=== PATIENT | male | born 1980 | race Caucasian/White ===

== ENCOUNTER → 2017-07-04 | Outpatient (CLI) | payer OTHER ==
[~2017-07-04] MED LIST: OXYC7.5T78 PO; TAMS0.4C38 PO
--- NOTE | 2017-07-04 10:46 | DIAGNOSTIC IMAGING REPORT ---
RENAL ULTRASOUND HISTORY: R31.29 Hematuria, [id number] COMPARISON: [facility] 02/09/2015. Abdomen and pelvis CT 07/30/2014. FINDINGS: Right kidney: 13.0 cm. No hydronephrosis. Normal corticomedullary differentiation and cortical thickness. Left kidney: 13.0 cm. No hydronephrosis. Normal corticomedullary differentiation and cortical thickness. Bladder: No bladder wall thickening. Only the left ureteral jet was identified. IMPRESSION: Normal renal ultrasound. Electronically signed by: Naresh Gotti M.D. 07/04/2017 10:45 AM Dictated Date/Time: 07/04/2017 10:43 AM
--- NOTE | 2017-07-04 10:55 | DIAGNOSTIC IMAGING REPORT ---
[facility] HISTORY: Acute hematuria with history of right-sided nephrolithiasis R31.29 Hematuria, [id number] COMPARISON: Renal ultrasound of same day, [facility] 02/09/2015 FINDINGS: The bowel gas pattern is non-obstructive. Mild stool volume throughout the colon. There is no organomegaly. Right renal shadow is obscured by bowel gas. Probable phlebolith of the right hemipelvis. No renal calculi. No ureteral calculi. No pneumoperitoneum or pneumatosis. No fracture. IMPRESSION: 1. Nonobstructive bowel gas pattern. 2. No urolith identified. Electronically signed by: Gordon Parada M.D. 07/04/2017 10:54 AM Dictated Date/Time: 07/04/2017 10:52 AM
== END | disposition home or self-care (01) ==
LOC: C.ULTR 09:32
PROVIDERS: ATTEND Urology
DX: R31.29 Other microscopic hematuria (principal)